=== PATIENT | female | born 1940 | race Caucasian/White ===

== ENCOUNTER 2020-12-28 10:06 | Emergency (ER) | payer MEDICARE, SELFPAY ==
[2020-12-28 10:13] VITALS: BP 144/52; PULSE 71; RESP 16; TEMP 36.5; O2SAT 98
--- NOTE | 2020-12-28 13:18 | ED.SKABFB ---
HPI - Skin/Abscess/Foreign Bdy General Chief complaint: Skin/Abscess/Foreign Body Stated complaint: Skin infection Time Seen by Provider: 12/28/20 11:59 History of Present Illness HPI narrative: Patient is a 80-year-old female who presents ER to be evaluated for a cat bite. Happened several days ago. Was placed on doxycycline and Flagyl on 12/26/2020. She stopped taking the Flagyl due to having an allergy to it that was known and she did not realize she was taking Flagyl. No fevers or chills or sweats. No lymphangitic streaking. She had some pus draining out of the wound yesterday while in the shower but no drainage today. Patient has no decrease in range of motion to the hand. Related Data Home Medications Medication Instructions Recorded Confirmed albuterol sulfate INHALATION 12/28/20 12/28/20 aspirin PO 12/28/20 atorvastatin 12/28/20 carvedilol 12/28/20 clopidogrel 12/28/20 doxycycline hyclate 12/28/20 lorazepam 12/28/20 lubiprostone [Amitiza] mcg PO 12/28/20 metronidazole 12/28/20 trazodone 12/28/20 Allergies Allergy/AdvReac Type Severity Reaction Status Date / Time Cephalosporins Allergy Hives Verified 12/28/20 10:20 codeine Allergy Hives Verified 12/28/20 10:20 dichloralphenazone Allergy Unknown Verified 12/28/20 10:21 fexofenadine Allergy Unknown Verified 12/28/20 10:21 lisinopril Allergy Difficulty Verified 12/28/20 10:24 Swallowing metronidazole [From Flagyl] Allergy Other Verified 12/28/20 11:19 nickel Allergy Rash Verified 12/28/20 10:25 Penicillins Allergy Rash Verified 12/28/20 10:25 prednisone Allergy Unresponsiv Verified 12/28/20 10:25 e shellfish derived Allergy Difficulty Verified 12/28/20 10:26 Breathing adhesive tape AdvReac Rash Verified 12/28/20 10:19 gabapentin AdvReac Unknown Verified 12/28/20 10:21 hydroxyzine AdvReac Unknown Verified 12/28/20 10:22 isometheptene AdvReac Unknown Verified 12/28/20 10:23 latex AdvReac Rash Verified 12/28/20 10:23 tramadol AdvReac Anxiety Verified 12/28/20 10:26 Review of Systems Review of Systems: All systems reviewed & are unremarkable except as noted in HPI and below Constitutional: Constitutional: Denies chills, Denies fever(s) and Denies weakness Musculoskeletal: Musculoskeletal: Denies arthralgias, Denies joint swelling and Denies muscle cramps Integumentary/Breasts: Skin/Breast: Denies pruritus, Reports erythema and Denies skin ulcer Neurologic: Denies focal weakness and Denies numbness PMFSH Past Medical History Medical History (Updated 12/28/20 @ 13:22 by Spike Ferrell MD) Anxiety Hypertension Social History Social History (Updated 12/28/20 @ 13:22 by Spike Ferrell MD) Smoking status: Never smoker Gender identity (if verbalized by the patient): Female Exam Narrative: GENERAL: Well-appearing, well-nourished, and in no acute distress. HEAD: Normocephalic, atraumatic. EXTREMITIES: Left hand without swelling to the fingers with normal range of motion and sensation. Nontender over hand wound. SKIN: Warm, dry, no rash. Bite wound to the dorsal aspect of first webspace of the left hand. Scabbed over and there is an area where she did have some previous drainage. No fluctuant abscess. No lymphangitic streaking. Slight cellulitis surrounding it. NEURO: No focal deficits. Alert and oriented x3. PSYCH: Normal mood and affect. Course Course Emergency Course: Discussed treatment plan with patient and patient verbalized understanding. Patient has a small area to the first webspace of her left hand where she had some drainage. There is surrounding induration. Slight erythema noted. Not particularly tender. No lymphangitic streaking. Fingers are not swollen she maintains normal range of motion. Vital Signs Vital signs: Vital Signs Temperature 97.7 F 12/28/20 10:13 Pulse Rate 71 12/28/20 10:13 Respiratory Rate 16 12/28/20 10:13 Blood Pressure 144/52 H 12/28/20 10:1
== END 2020-12-28 13:34 | disposition home or self-care (01) ==
PROVIDERS: Emergency Provider Emergency Medicine; PCP Internal Medicine
DX: L03.114 Cellulitis of left upper limb (principal); I10 Essential (primary) hypertension; F41.9 Anxiety disorder, unspecified; Z79.82 Long term (current) use of aspirin; W55.01XA Bitten by cat, initial encounter
CPT/HCPCS: 99281

== ENCOUNTER 2021-08-04 14:20 | Outpatient (CLI) | payer MEDICARE, SELFPAY ==
--- NOTE | ~2021-08-04 | XR_ITS ---
EXAMINATION: XR chest 2V DATE: 08/04/2021 14:41 INDICATION: Cough. TECHNIQUE: Frontal and lateral views of the chest were obtained. COMPARISON: None. FINDINGS: There is mild scarring at the lung apices. No pleural effusion or pneumothorax. The heart s ize is normal. IMPRESSION: 1. Mild scarring at the lung apices. Reviewed, dictated and finalized at location A. GE CUTTER
== END 2021-08-04 14:21 | disposition home or self-care (01) ==
DX: J44.1 Chronic obstructive pulmonary disease with (acute) exacerbation (principal)
CPT/HCPCS: 71046

== ENCOUNTER 2024-02-01 11:28 | Outpatient (CLI) | payer MEDICARE, SELFPAY ==
--- NOTE | ~2024-02-01 | XR_ITS ---
Clinical Indication: Cough PA and lateral views of the chest: Comparison: 08/04/2021 Findings: The lungs are clear, without evidence of focal consolidation or pleural effusion. Cardiome diastinal silhouette is within normal limits. Bones and soft tissues are unremarkable. Impression: Normal chest. Reviewed, dictated and finalized at location . Impression: Normal chest.
== END 2024-02-01 11:29 | disposition home or self-care (01) ==
DX: R05.3 Chronic cough (principal)
CPT/HCPCS: 71046

== ENCOUNTER 2024-02-06 12:33 | Outpatient (CLI) | payer MEDICARE, SELFPAY ==
--- NOTE | ~2024-02-06 | CT_ITS ---
EXAMINATION: CT sinus wo con DATE: 02/06/2024 13:01 INDICATION: Chronic maxillary sinusitis. TECHNIQUE: Computed tomography (CT) of the paranasal sinuses was performed without intravenous contra st. The dose-length product (DLP) was 384.14 mGy-cm. Iterative reconstruction was used. COMPARISON: None FINDINGS: There is normal development and pneumatization of the paranasal sinuses. Mild leftward bowi ng of the osseous nasal septum with a small inferior osseous spur directed to the left. Mild mucosal thickening in the ethmoid sinuses and bilateral maxillary sinuses, slightly greater in the right maxi llary sinus. The bilateral ostiomeatal complexes are patent. Visualized soft tissues are unremarkable . Bilateral lens replacements. Minimal debris in the bilateral external auditory meati, likely cerume n. IMPRESSION: Mild mucoperiosteal thickening in the ethmoid and bilateral maxillary sinuses. Reviewed, dictated and finalized at location K.
== END 2024-02-06 12:34 | disposition home or self-care (01) ==
DX: J32.0 Chronic maxillary sinusitis (principal); J34.89 Other specified disorders of nose and nasal sinuses
CPT/HCPCS: 70486